=== PATIENT | male | born 1990 | race Caucasian/White ===

== ENCOUNTER 2016-11-24 14:16 | Emergency (ER) | payer OTHER ==
[~2016-11-24] VITALS: Ht 175.3 cm; Wt 87.1 kg
[2016-11-24] MEDS ORDERED: LORA1TAB PO (14:28)
--- NOTE | 2016-11-24 15:10 | NUR ---
Pt states he got back from trip to [place] 4 days ago, started having GI trouble about 1-2 days prior, including loose stools, n/v, flatulence. No other complaints, no distress noted.
[2016-11-24 15:17] LABS: BASOPHILS # (AUTO) 0.1 K/uL (0.0-8.0); BASOPHILS % (AUTO) 0.7 % (0.0-2.0); EOSINOPHILS # (AUTO) 0.1 K/uL (0.0-0.7); HEMATOCRIT 48.3 % (40-50); LYMPHOCYTES # (AUTO) 1.8 K/UL (0.8-4.8); LYMPHOCYTES % (AUTO) 24.6 % (20.5-51.5); MEAN CORPUSCULAR HEMOGLOBIN 27.8 UUG (27.0-31.0); MEAN CORPUSCULAR HGB CONC 33 g/dL (32.0-37.0); MEAN CORPUSCULAR VOLUME 83.9 FL (82.0-92.0); MONOCYTES # (AUTO) 0.5 K/UL (0.1-1.30); MONOCYTES % (AUTO) 6.7 % (0.0-11.0); NEUTROPHILS # (AUTO) 4.8 K/UL (1.8-8.9); PLATELET COUNT (AUTO) 353 K/UL (150-450); RED BLOOD CELL COUNT(AUTO) 5.75 MIL/UL (4.7-6.1); WHITE BLOOD COUNT (AUTO) 7.3 K/UL (4.0-11.2)
[2016-11-24 15:23] LABS: POTASSIUM 4.1 mmol/L (3.5-5.1)
[2016-11-24 15:28] LABS: BILIRUBIN,TOTAL 0.3 mg/dL (0.2-1.0); TOTAL PROTEIN, SERUM 7.5 g/dL (6.4-8.2)
--- NOTE | 2016-11-24 16:30 | NUR ---
DR SONI AT BEDSIDE MADE PATIENT AWARE OF ALL TEST RESULTS.
--- NOTE | 2016-11-24 16:39 | NUR ---
Patient discharged to home in stable conditon. Written and verbal after care instructions given. Patient verbalizes understanding of instructions.
== END 2016-11-24 16:44 | disposition home or self-care (01) ==
LOC: ER 14:18
DX: R19.7 Diarrhea, unspecified (principal); R53.1 Weakness; R50.9 Fever, unspecified; F41.9 Anxiety disorder, unspecified
CPT/HCPCS: 36415; 83690; 85025; 85651; 86140; A4663